=== PATIENT | male | born 1975 | race Hispanic/Latino ===

== ENCOUNTER → 2023-09-03 14:58 | Outpatient (REF) | payer OTHER, SELFPAY | LOC: CLINIC 14:58 | PROVIDERS: ATTENDING PHYSICIAN Specialist | DX: N20.0 Calculus of kidney (principal) | CPT/HCPCS: 87086; 87088; 87186 ==

== ENCOUNTER → 2024-01-18 08:11 | Outpatient (REF) | payer OTHER, SELFPAY ==
[2024-01-18 09:52] LABS: ALT (SGPT) 25 U/L (0-50); AST (SGOT) 20 U/L (17-59); Albumin 4.6 g/dl (3.5-5.0); Alkaline Phosphatase 66 U/L (38-126); Blood Urea Nitrogen 18 mg/dl (9-20); Calcium 9.7 mg/dl (8.4-10.2); Carbon Dioxide 26 mmol/L (22-30); Chloride 97 mmol/L (98-107); Glucose 115 mg/dl (70-99); Potassium 4.6 mmol/L (3.5-5.1); Sodium 135 mmol/L (135-145); Total Bilirubin 0.8 mg/dl (0.2-1.3); Total Protein 7.7 g/dl (6.3-8.2); eGFR > 60.00
[2024-01-18 11:19] LABS: Glycohemoglobin (HgbA1c) 6.2 % (4.0-5.6)
== END ==
LOC: REG 08:11
PROVIDERS: ATTENDING PHYSICIAN Nurse Practitioner Adult Health
DX: E11.9 Type 2 diabetes mellitus without complications (principal); E87.1 Hypo-osmolality and hyponatremia
CPT/HCPCS: 36415; 80053; 83036

== ENCOUNTER → 2024-02-22 09:48 | Outpatient (REF) | payer OTHER, SELFPAY ==
[2024-02-22 12:33] LABS: Urine Albumin Negative (Neg - Trace); Urine Bilirubin Negative (Negative); Urine Character Clear (Clear); Urine Color Yellow; Urine Glucose Trace (Negative); Urine Ketone Trace (Negative); Urine Leukocyte Trace (Negative); Urine Nitrite Positive (Negative); Urine Occult Blood 1+ (Negative); Urine Specific Gravity 1.015 (<1.030); Urine Urobilinogen Negative (Neg - 1+)
[2024-02-22 12:44] LABS: Urine Bacteria Many (Negative)
[2024-02-22 12:45] LABS: Urine Red Blood Cell 0-2 /HPF (0-2); Urine White Cell 26-30 /HPF (0-5)
[2024-02-22 12:46] LABS: Urine Squamous Cell 0-2 /LPF (Few)
== END ==
LOC: CLINIC 09:48
PROVIDERS: ATTENDING PHYSICIAN Specialist
DX: N39.0 Urinary tract infection, site not specified (principal)
CPT/HCPCS: 81003; 81015; 87077; 87086; 87186

== ENCOUNTER → 2024-04-12 08:21 | Outpatient (REF) | payer OTHER, SELFPAY ==
[2024-04-12 10:27] LABS: ALT (SGPT) 26 U/L (0-50); AST (SGOT) 25 U/L (17-59); Albumin 4.6 g/dl (3.5-5.0); Alkaline Phosphatase 74 U/L (38-126); Blood Urea Nitrogen 19 mg/dl (9-20); Calcium 9.7 mg/dl (8.4-10.2); Carbon Dioxide 26 mmol/L (22-30); Chloride 100 mmol/L (98-107); Glucose 105 mg/dl (70-99); Potassium 4.9 mmol/L (3.5-5.1); Sodium 135 mmol/L (135-145); Total Bilirubin 0.9 mg/dl (0.2-1.3); Total Protein 7.5 g/dl (6.3-8.2); eGFR > 60.00
[2024-04-12 12:11] LABS: Glycohemoglobin (HgbA1c) 5.9 % (4.0-5.6)
== END ==
LOC: CLINIC 08:21
PROVIDERS: ATTENDING PHYSICIAN Nurse Practitioner Adult Health
DX: E11.9 Type 2 diabetes mellitus without complications (principal)
CPT/HCPCS: 80053; 83036

== ENCOUNTER → 2024-04-23 09:21 | Outpatient (REF) | payer OTHER, SELFPAY ==
[2024-04-23 10:15] LABS: Urine Albumin Negative (Neg - Trace); Urine Bilirubin Negative (Negative); Urine Character Clear (Clear); Urine Color Yellow; Urine Glucose Negative (Negative); Urine Ketone Negative (Negative); Urine Leukocyte Trace (Negative); Urine Nitrite Negative (Negative); Urine Occult Blood Negative (Negative); Urine Urobilinogen Negative (Neg - 1+)
[2024-04-23 10:47] LABS: Urine Amorphous Seen; Urine Mucus Few
[2024-04-23 10:50] LABS: Urine Red Blood Cell 0-2 /HPF (0-2)
[2024-04-23 10:52] LABS: Urine Bacteria Few (Negative)
== END ==
LOC: CLINIC 09:21
PROVIDERS: ATTENDING PHYSICIAN Specialist
DX: N20.0 Calculus of kidney (principal); N39.0 Urinary tract infection, site not specified
CPT/HCPCS: 74018; 81003; 81015; 87077; 87086; 87186

== ENCOUNTER → 2024-07-19 08:53 | Outpatient (REF) | payer OTHER, SELFPAY ==
[2024-07-19 10:53] LABS: ALT (SGPT) 24 U/L (0-50); AST (SGOT) 24 U/L (17-59); Albumin 4.5 g/dl (3.5-5.0); Alkaline Phosphatase 70 U/L (38-126); Blood Urea Nitrogen 22 mg/dl (9-20); Calcium 9.6 mg/dl (8.4-10.2); Carbon Dioxide 24 mmol/L (22-30); Chloride 100 mmol/L (98-107); Glucose 106 mg/dl (70-99); Sodium 138 mmol/L (135-145); Total Bilirubin 0.9 mg/dl (0.2-1.3); Total Protein 7.2 g/dl (6.3-8.2); eGFR > 60.00
== END ==
LOC: REG 08:53
PROVIDERS: ATTENDING PHYSICIAN Nurse Practitioner Adult Health
DX: E11.9 Type 2 diabetes mellitus without complications (principal)
CPT/HCPCS: 80053; 83036

== ENCOUNTER → 2024-11-22 08:37 | Outpatient (REF) | payer OTHER, SELFPAY ==
[2024-11-22 10:35] LABS: Hematocrit 41.4 % (39.0-52.0); Hemoglobin 14.1 g/dL (13.0-18.0); Mean Corp Hgb Conc. 34.1 g/dL (33.0-37.0); Mean Corpuscular Hgb 30.3 pg (27.0-31.0); Mean Platelet Volume 11.3 fL (7.4-10.4); Platelet Count 225 10^3/uL (130-400); Red Blood Cell Count 4.65 10^6/uL (4.70-6.10); Red Cell Dist. Width 12.4 % (11.5-14.5)
[2024-11-22 11:04] LABS: Microalbumin, Random Urine 2.5 mg/dl (0.6-1.7); Microalbumin/creatinine Ratio 18.8 mg/g
[2024-11-22 11:05] LABS: ALT (SGPT) 27 U/L (0-50); AST (SGOT) 23 U/L (17-59); Albumin 4.6 g/dl (3.5-5.0); Alkaline Phosphatase 82 U/L (38-126); Blood Urea Nitrogen 17 mg/dl (9-20); Calcium 9.2 mg/dl (8.4-10.2); Carbon Dioxide 24 mmol/L (22-30); Chloride 98 mmol/L (98-107); Glucose 109 mg/dl (70-99); HDL Cholesterol 44 mg/dl; LDL Cholesterol, Calculated 84 mg/dl; Potassium 4.4 mmol/L (3.5-5.1); Sodium 134 mmol/L (135-145); Total Bilirubin 0.9 mg/dl (0.2-1.3); Total Cholesterol 151 mg/dl (50-199); Total Protein 7.4 g/dl (6.3-8.2); Triglyceride 118 mg/dl (10-149); Very Low Density Lipoprotein 23 mg/dl (0-30); eGFR > 60.00
[2024-11-22 11:16] LABS: Glycohemoglobin (HgbA1c) 6.1 % (4.0-5.6)
== END ==
LOC: REG 08:37
PROVIDERS: ATTENDING PHYSICIAN Nurse Practitioner Adult Health
DX: E11.9 Type 2 diabetes mellitus without complications (principal); E78.5 Hyperlipidemia, unspecified
CPT/HCPCS: 80053; 80061; 82043; 82570; 83036; 85027

== ENCOUNTER → 2025-01-26 09:11 | Outpatient (REF) | payer OTHER, SELFPAY ==
[2025-01-26 10:51] LABS: Urine Albumin Negative (Neg - Trace); Urine Bilirubin Negative (Negative); Urine Character Clear (Clear); Urine Color Yellow; Urine Glucose Negative (Negative); Urine Ketone Negative (Negative); Urine Leukocyte 1+ (Negative); Urine Nitrite Negative (Negative); Urine Occult Blood Negative (Negative); Urine Specific Gravity 1.005 (<1.030); Urine Urobilinogen Negative (Neg - 1+)
[2025-01-26 11:50] LABS: Urine Squamous Cell 0-2 /LPF (Few)
[2025-01-26 11:51] LABS: Urine Amorphous Seen; Urine Red Blood Cell 0-2 /HPF (0-2); Urine White Cell 0-2 /HPF (0-5)
== END ==
LOC: CLINIC 09:11
PROVIDERS: ATTENDING PHYSICIAN Specialist
DX: N39.0 Urinary tract infection, site not specified (principal)
CPT/HCPCS: 81003; 81015; 87086; 87088; 87186

== ENCOUNTER → 2025-02-24 09:28 | Outpatient (REF) | payer OTHER, SELFPAY ==
[2025-02-24 11:14] LABS: Microalbumin, Random Urine 1.2 mg/dl (0.6-1.7); Microalbumin/creatinine Ratio 6.7 mg/g
[2025-02-24 11:32] LABS: Glycohemoglobin (HgbA1c) 5.9 % (4.0-5.6)
[2025-02-24 12:33] LABS: ALT (SGPT) 25 U/L (0-50); AST (SGOT) 22 U/L (17-59); Albumin 4.9 g/dl (3.5-5.0); Alkaline Phosphatase 73 U/L (38-126); Blood Urea Nitrogen 14 mg/dl (9-20); Calcium 9.7 mg/dl (8.4-10.2); Carbon Dioxide 24 mmol/L (22-30); Chloride 102 mmol/L (98-107); Glucose 120 mg/dl (70-99); Potassium 4.7 mmol/L (3.5-5.1); Sodium 138 mmol/L (135-145); Total Bilirubin 0.8 mg/dl (0.2-1.3); Total Protein 7.6 g/dl (6.3-8.2); eGFR > 60.00
== END ==
LOC: REG 09:28
PROVIDERS: ATTENDING PHYSICIAN Nurse Practitioner Adult Health
DX: R80.9 Proteinuria, unspecified (principal); E11.9 Type 2 diabetes mellitus without complications
CPT/HCPCS: 36415; 80053; 82043; 82570; 83036

== ENCOUNTER 2025-02-25 06:32 | Day surgery (SDC) | payer OTHER, SELFPAY ==
[2025-02-25 10:25] VITALS: BMI 50.7
[2025-02-25 10:28] LABS: Glucose - Point of Care 118 mg/dl (70-99)
[2025-02-25] MEDS: NORMOSOL-R/PLASMALYTE-A 1000 IV (10:28)
[2025-02-25] MEDS: TYLENOL 1000 MG PO (10:28)
[2025-02-25] MEDS: CELEBREX 200 MG PO (10:28)
[2025-02-25 10:40] VITALS: BP 128/91
[2025-02-25 12:48] VITALS: BP 124/57; BP 128/91
--- NOTE | 2025-02-25 12:48 | W.IMMPOSTOP ---
Surgical Immed Post Op Note
-
Primary Surgeon: Romulo Clinton MD
Assisting Surgeon: None
Pre-op Diagnosis: Anal pain
Post-op Diagnosis: Transsphincteric anal fistula x 2, internal hemorrhoids
Procedure Performed: EUA, fistulotomy, seton placement, debridement of fistula tract, bilateral pudendal nerve block
Anesthesia Type: General
Specimen / Cultures: Anterior external opening
Estimated Blood Loss: 5 mL
Complications: None
Operative Findings:
�Left anterior external opening identified within 1 cm of the anal verge with internal opening distal to the dentate line; 1 cm of internal sphincter involvement with 2 to 3 mm of external sphincter involvement; debrided fistula tract in place seton
� Right posterior external opening 7 to 8 mm from the anal verge, internal opening just proximal to the dentate line; 1.5 cm of internal sphincter involvement with 1 to 2 mm of external sphincter involvement; performed fistulotomy
� Small internal hemorrhoids in the usual 3 column distribution, not irritated or bleeding; left alone
--- NOTE | 2025-02-25 12:53 | OR.RPT ---
Operative Report
Operative Report
DATE OF OPERATION: 02/25/2025
SURGEON: Romulo Clinton MD
PREOPERATIVE DIAGNOSIS: Anal pain
POSTOPERATIVE DIAGNOSIS: Transsphincteric anal fistula x 2, internal hemorrhoids
OPERATION: Exam under anesthesia, debridement of fistula tract, fistulotomy, placement of seton, bilateral pudendal nerve block
ASSISTANTS:
1. None
ANESTHESIA: General
ESTIMATED BLOOD LOSS: 5 mL
FINDINGS:
1. Left anterior transsphincteric fistula; about 1cm of internal sphincter and 3-4 mm of external sphincter involved; placed seton
2. Right posterior transsphincteric fistula; about 1.5-2 cm of internal sphincter and 1-2mm of external sphincter involved; performed fistulotomy
3. Incidental findings; anal canal about 4 cm in length (3.5 cm in length anteriorly); small internal hemorrhoids in the 3�column distribution without irritation or bleeding
SPECIMENS:
1. Anterior fistula external opening
DRAINS: Seton
COMPLICATIONS: None
INDICATIONS: The patient is a 49-year-old male who presented to my office with perianal pain and drainage. On exam, there appeared to be perianal wounds concerning for external openings of fistula. I attempted anoscopy, but the patient was unable
to tolerate this. Therefore, the patient was recommended to have surgery for a thorough exam and likely treatment of fistula, possible treatment of hemorrhoids. The operation was discussed with the patient in detail, including the risks, benefits
and alternatives. Risks described included, but not limited to bleeding, infection, urinary retention, damage to nearby structures such as the anal sphincter, fecal incontinence, recurrence, inability to identify the internal or external opening and
anesthetic risks. The patient understood and agreed to proceed. The consent was signed and placed in the chart. The children's zoo caretaker line was used (children's zoo caretaker was Tonio, ID code [id number]).
PROCEDURE IN DETAIL: The patient was taken to the operating room. Per anesthesia, the decision was made to intubate the patient for this surgery. On the stretcher, general anesthesia was induced and the patient was intubated without complication.
The patient was placed on the operating table in prone position. Sequential compression devices were placed bilaterally. Two seat belts were secured around the legs and upper back. The buttocks were taped apart. The perineum was shaved, prepped
and draped in the usual fashion. A time-out was performed verifying the correct patient, procedure, operative site, positioning, and special equipment.
Local anesthesia used was a mixture of 60 mL of 0.25% Marcaine with epinephrine and 0.6 mg of dexamethasone. 40 mL was injected perianally at the beginning of the case. The anorectal exam was performed assessing all four quadrants of the anal canal
using Hill-Evangelista retractors in progressively increasing size. I noted the anal canal to be about 4 cm in length posteriorly and about 3.5 cm anteriorly. There were small internal hemorrhoids in the usual 3�column distribution. These
hemorrhoids were not irritated or bleeding. Therefore, I left these alone. There were no masses. There was no proctitis.
In the left anterior perianal area, I identified a raised area of granulation tissue concerning for an external opening, less than 1 cm from the anal verge. This opening was probed. There was no abscess cavity or purulent drainage. I was unable
to identify an internal opening. Therefore, I injected dilute hydrogen peroxide and identified an internal opening in the distal anal canal oriented radially from the external opening. I was then able to pass a lacrimal probe through the internal
opening to confirm the fistula. There appeared to be about 1 cm or less of internal sphincter muscle with a few millimeters of external sphincter muscle involved. I passed a 2-0 silk tie through the fistula and held this in place with a hemostat.
I identified another spot in the perianal region concerning for an external opening in the right posterior area, about 8 mm from the anal verge. This was probed. There was no abscess cavity and no purulent drainage. I was unable to identify an
internal opening. Therefore, I injected dilute hydrogen peroxide and identified an internal opening in the proximal anal canal oriented toward the posterior midline. I was able to pass a lacrimal probe through the internal opening and identify the
fistula tract. There was about 1.5 to 2 cm of internal sphincter muscle and about 1 to 2 mm of external sphincter muscle involved. As this fistula comprised less than 50% of the sphincter complex and mostly just internal sphincter muscle, I
performed a fistulotomy. I openned the fistula using electrocautery. I curetted the fistula tract. Hemostasis was achieved with electrocautery. Regarding the anterior fistula, I elected to place a seton drain. I want to confirm that the patient
does not develop any issues with control due to this fistulotomy prior to making an additional fistulotomy. I excised the external opening to remove the granulation tissue and I passed this off for specimen. I curetted the fistula tract. I passed
a vessel loop through the fistula and secured it to itself with three 2-0 silk ties. I was able to pass the tip of my index finger under the seton drain, ensuring it was not too tight.
Hemostasis was assured. The remaining 20 mL of local were injected. 5 mL was injected bilaterally for a pudendal nerve block. 10 mL was injected around the surgical site and perianally. Hemostasis was reassessed once more using the small
Hill-Evangelista and was confirmed. A pea-sized amount of Dibucaine was then applied to the external portion of the wound.
At this point, the procedure was complete. All needle, sponge and instrument counts were correct. The patient tolerated the procedure well and was transferred to the recovery room in stable condition with gauze and silk tape in place over the anus.
DICTATED BY: Romulo Clinton MD
[2025-02-25 13:00] VITALS: BP 122/56
[2025-02-25 13:10] LABS: Glucose - Point of Care 137 mg/dl (70-99)
[2025-02-25 13:15] VITALS: BP 109/56
[2025-02-25 13:19] VITALS: BP 123/55
[2025-02-25 13:45] VITALS: BP 126/63
== END 2025-02-25 14:20 | disposition home or self-care (01) ==
LOC: SDS 06:32
PROVIDERS: ATTENDING PHYSICIAN Surgery
DX: K60.329 Anal fistula, complex, unspecified (principal); K64.8 Other hemorrhoids
CPT/HCPCS: 46270; 88304; 88312; 82962; 88342

== ENCOUNTER 2025-05-19 06:29 | Day surgery (SDC) | payer OTHER, SELFPAY ==
[2025-05-19 10:03] LABS: Glucose - Point of Care 99 mg/dl (70-99)
== END 2025-05-19 12:26 | disposition home or self-care (01) ==
LOC: GI 06:29
PROVIDERS: ATTENDING PHYSICIAN Surgery
DX: Z12.11 Encounter for screening for malignant neoplasm of colon (principal); K64.8 Other hemorrhoids; K60.30 Anal fistula, unspecified
CPT/HCPCS: G0121; 82962

== ENCOUNTER 2025-05-27 06:35 | Day surgery (SDC) | payer OTHER, SELFPAY ==
--- NOTE | 2025-05-25 11:33 | PTCARENOTE ---
Patient denies receiving bowel prep instructions for procedure. Michelle at office notified to call and confirm instructions with patient.
[2025-05-27] VITALS (8 sets, daily range): BP systolic 108–130; BP diastolic 56–72; BMI 38.9
[2025-05-27] MEDS: CELEBREX 200 MG PO (08:31)
[2025-05-27] MEDS: TYLENOL 1000 MG PO (08:32)
[2025-05-27] MEDS: NORMOSOL-R/PLASMALYTE-A 1000 IV (08:46)
[2025-05-27 08:50] LABS: Glucose - Point of Care 104 mg/dl (70-99)
[2025-05-27 10:10] LABS: Glucose - Point of Care 111 mg/dl (70-99)
--- NOTE | 2025-05-27 10:10 | W.IMMPOSTOP ---
Surgical Immed Post Op Note
-
Primary Surgeon: Romulo Clinton MD
Assisting Surgeon: None
Pre-op Diagnosis: Transsphincteric perianal fistula
Post-op Diagnosis: Transsphincteric perianal fistula
Procedure Performed: Exam under anesthesia, fistulotomy, marsupialization, bilateral pudendal nerve block
Anesthesia Type: Sedation with local
Specimen / Cultures: Anterior fistula tract
Estimated Blood Loss: 5 mL
Complications: None
Operative Findings: Prior fistulotomy site in the right posterior position nearly completely healed with no evidence of recurrent fistula; seton in place in the left anterior fistula; about 1.5 cm of internal sphincter and 3-4 mm of external
sphincter involved, perform fistulotomy; marsupialized edges with 2-0 Vicryl and debrided fistula tract, passed off the specimen; incidental findings of internal hemorrhoids in the right lateral right posterior and left lateral positions without
irritation or bleeding
--- NOTE | 2025-05-27 10:18 | OR.RPT ---
Operative Report
Operative Report
DATE OF OPERATION: 05/27/2025
SURGEON: Romulo Clinton MD
PREOPERATIVE DIAGNOSIS: Transsphincteric anal fistula
POSTOPERATIVE DIAGNOSIS: Transphincteric anal fistula
OPERATION: Exam under anesthesia, debridement of fistula tract, fistulotomy with marsupialization, pudendal nerve block
ASSISTANTS:
1. None
ANESTHESIA: Sedation with local
ESTIMATED BLOOD LOSS: 5 mL
FINDINGS:
1. Nearly completely healed fistulotomy site in the right posterior position
2. Left anterior transsphincteric fistula with about 1.5 cm of internal sphincter and 3 to 4 mm of external sphincter; performed fistulotomy
3. Incidental findings: Small to moderate internal hemorrhoids in the right lateral, right posterior and left lateral positions without irritation or bleeding
SPECIMENS:
1. Anterior fistula tract
DRAINS: None
COMPLICATIONS: None
INDICATIONS: The patient is a 49-year-old male who was found to have two transsphincteric fistulas on an exam under anesthesia on 02/25/2025. At that time, he underwent fistulotomy for a right posterior perianal fistula with minimal external
sphincter involvement. The left anterior fistula had about 3 to 4 mm of external sphincter and a seton was placed. The patient recovered well and was recommended to undergo second stage surgery. The operation was discussed with the patient in
detail, including the risks, benefits and alternatives. Risks described included, but not limited to bleeding, infection, urinary retention, damage to nearby structures such as the anal sphincter, fecal incontinence, recurrence, need for a
sphincter-sparing procedure, such as the LIFT procedure vs advancement flap, complications if flap is used (ie- flap failure, chronic wound) and anesthetic risks. The patient understood and agreed to proceed. The consent was signed and placed in the
chart.
PROCEDURE IN DETAIL: The patient was taken to the operating room. Sequential compression devices were placed bilaterally. The patient was placed on the operating table in prone position. Sedation was commenced without complication. Two seat belts
were secured around the legs and upper back. The buttocks were taped apart. The perineum was shaved, prepped and draped in the usual fashion. A time-out was performed verifying the correct patient, procedure, operative site, positioning, and
special equipment.
Local anesthesia used was a mixture of 30 mL of 0.25% Marcaine with epinephrine, 30mL of 1% lidocaine plain and 0.6 mg of dexamethasone. 40 mL was injected perianally at the beginning of the case. The anorectal exam was performed assessing all four
quadrants of the anal canal using Hill-Evangelista retractors in progressively increasing size. The prior fistulotomy site was visualized in the right posterior position. This had nearly completely healed with a clean wound base and no evidence of
recurrent fistula. The left anterior fistula with seton in place was visualized. There were small to moderate internal hemorrhoids in the right lateral, right posterior and left lateral positions, none with irritation or bleeding. There was no
proctitis or masses.
A fistula probe was placed. The seton was cut and removed. There appeared to be about 1 to 1.5 cm of internal sphincter involvement with only 3 to 4 mm of external sphincter involvement. Therefore, I proceeded with fistulotomy. Using
electrocautery, the skin overlying the fistula was incised. I took this down layer by layer and confirmed only 3 to 4 mm of external sphincter involvement. The tract was debrided and this tissue was passed off for specimen. Hemostasis was achieved
with electrocautery. I marsupialized the wound with interrupted 2-0 Vicryl stitches in order to decrease risk of recurrent fistula.
The remaining 20 mL of local were injected. 5 mL was injected bilaterally for a pudendal nerve block. 10 mL was injected around the surgical site and perianally. Hemostasis was reassessed once more using the small Hill-Evangelista and was confirmed.
Surgicel was placed in the operative site prophylactically. At this point, the procedure was complete. All needle, sponge and instrument counts were correct. The patient tolerated the procedure well and was transferred to the recovery room in stable
condition with gauze dressing in place secured with silk tape.
DICTATED BY: Romulo Clinton MD
== END 2025-05-27 11:22 | disposition home or self-care (01) ==
LOC: SDS 06:35
PROVIDERS: ATTENDING PHYSICIAN Surgery
DX: K60.329 Anal fistula, complex, unspecified (principal)
CPT/HCPCS: 46275; 82962; 88304; 88341; 88342; J1335

== ENCOUNTER → 2025-06-01 07:19 | Outpatient (REF) | payer OTHER, SELFPAY ==
[2025-06-01 08:20] LABS: Glycohemoglobin (HgbA1c) 6.1 % (4.0-5.6)
[2025-06-01 08:40] LABS: ALT (SGPT) 18 U/L (0-50); AST (SGOT) 15 U/L (17-59); Albumin 4.3 g/dl (3.5-5.0); Alkaline Phosphatase 51 U/L (38-126); Blood Urea Nitrogen 15 mg/dl (9-20); Calcium 9.3 mg/dl (8.4-10.2); Carbon Dioxide 27 mmol/L (22-30); Chloride 103 mmol/L (98-107); Glucose 102 mg/dl (70-99); Potassium 4.8 mmol/L (3.5-5.1); Sodium 138 mmol/L (135-145); Total Protein 6.8 g/dl (6.3-8.2); eGFR > 60.00
== END ==
LOC: REG 07:19
PROVIDERS: ATTENDING PHYSICIAN Nurse Practitioner Adult Health
DX: E11.9 Type 2 diabetes mellitus without complications (principal)
CPT/HCPCS: 36415; 80053; 83036

== ENCOUNTER → 2025-07-28 08:15 | Outpatient (REF) | payer OTHER, SELFPAY ==
[2025-07-28 10:22] LABS: Urine Character Clear (Clear)
== END ==
LOC: REG 08:15
PROVIDERS: ATTENDING PHYSICIAN Specialist
DX: N39.0 Urinary tract infection, site not specified (principal)
CPT/HCPCS: 36415; 81003; 87077; 87086; 87186

== ENCOUNTER → 2025-08-29 07:48 | Outpatient (REF) | payer OTHER, SELFPAY ==
[2025-08-29 08:57] LABS: Microalbumin, Random Urine <0.6 mg/dl (0.6-1.7)
[2025-08-29 09:02] LABS: Microalb - Urine Creatinine 74.600 mg/dl
[2025-08-29 09:33] LABS: ALT (SGPT) 32 U/L (0-50); AST (SGOT) 22 U/L (17-59); Albumin 4.4 g/dl (3.5-5.0); Alkaline Phosphatase 55 U/L (38-126); Blood Urea Nitrogen 14 mg/dl (9-20); Calcium 9.1 mg/dl (8.4-10.2); Carbon Dioxide 26 mmol/L (22-30); Chloride 103 mmol/L (98-107); Glucose 97 mg/dl (70-99); Potassium 5.0 mmol/L (3.5-5.1); Sodium 134 mmol/L (135-145); Total Protein 7.1 g/dl (6.3-8.2); eGFR > 60.00
[2025-08-29 10:32] LABS: Glycohemoglobin (HgbA1c) 5.9 % (4.0-5.6)
== END ==
LOC: REG 07:48
PROVIDERS: ATTENDING PHYSICIAN Nurse Practitioner Adult Health
DX: E11.9 Type 2 diabetes mellitus without complications (principal); R80.9 Proteinuria, unspecified
CPT/HCPCS: 80053; 82043; 82570; 83036

== ENCOUNTER → 2025-10-03 08:41 | Outpatient (REF) | payer OTHER, SELFPAY ==
[2025-10-03 09:41] LABS: Hematocrit 40.8 % (39.0-52.0); Hemoglobin 13.7 g/dL (13.0-18.0); Mean Corp Hgb Conc. 33.6 g/dL (33.0-37.0); Mean Corpuscular Volume 91.1 fL (80.0-94.0); Nucleated Red Blood Cells % 0 % (-); Platelet Count 263 10^3/uL (130-400); Red Cell Dist. Width 12.8 % (11.5-14.5)
[2025-10-03 10:07] LABS: Urine Character Clear (Clear)
[2025-10-03 10:08] LABS: ALT (SGPT) 22 U/L (0-50); AST (SGOT) 20 U/L (17-59); Albumin 4.6 g/dl (3.5-5.0); Alkaline Phosphatase 62 U/L (38-126); Blood Urea Nitrogen 17 mg/dl (9-20); Calcium 9.0 mg/dl (8.4-10.2); Carbon Dioxide 29 mmol/L (22-30); Chloride 101 mmol/L (98-107); Glucose 105 mg/dl (70-99); Potassium 4.5 mmol/L (3.5-5.1); Sodium 138 mmol/L (135-145); Total Protein 7.5 g/dl (6.3-8.2); eGFR > 60.00
== END ==
LOC: CLINIC 08:41
PROVIDERS: ATTENDING PHYSICIAN Specialist; FAMILY PHYSICIAN Nurse Practitioner Adult Health
DX: N39.0 Urinary tract infection, site not specified (principal)
CPT/HCPCS: 36415; 80053; 81003; 85025; 87086

== ENCOUNTER → 2025-10-13 11:47 | Outpatient (REF) | payer OTHER, SELFPAY ==
[2025-10-13 13:55] LABS: PSA, Total - Screen 1.10 ng/ml (0.0-4.0)
== END ==
LOC: REG 11:47
PROVIDERS: ATTENDING PHYSICIAN Specialist
DX: Z12.5 Encounter for screening for malignant neoplasm of prostate (principal)
CPT/HCPCS: 36415; G0103